=== PATIENT | female | born 1980 | race Caucasian/White ===

== ENCOUNTER → 2019-04-15 | Outpatient (CLI) | payer MEDICAID ==
[~2019-04-15] MED LIST: HOLD METFORMIN - RECEIVED CONTRAST 20 ML VIAL IV SCH; IOHEXOL 350 MG/ML 100 ML (OMNIPAQUE 350) VIAL IV ONE; NS 100 ML (IVPB) BAG IV ONE
--- NOTE | 2019-04-15 16:44 | Diagnostic Imaging Report ---
PROCEDURE: CT abdomen and pelvis with and without contrast. TECHNIQUE: Precontrast acquisitions were acquired through the abdomen and pelvis. Multiple contiguous axial images were obtained through the abdomen and pelvis after the administration of intravenous contrast. Auto Exposure Controls were utilized during the CT exam to meet ALARA standards for radiation dose reduction. DATE: April 15, 2019. COMPARISON: None. INDICATION: 39-year-old female, chronic pelvic pain. Vomiting and nausea. FINDINGS: There is mosaic lung attenuation which could relate to chronic small airways disease and air trapping. Chronic vascular etiology is also considered. The heart is not enlarged. There is no pericardial effusion. The liver is normal in size and contour. There is no identified liver lesion. The main, right, and left portal veins are patent. The gallbladder is unremarkable. There is no biliary ductal dilation. The main pancreatic duct is not abnormally dilated. Unremarkable appearance of the pancreatic parenchyma. The spleen is not enlarged. There is a right adrenal nodule on axial image 26 which measures 1.4 cm in size. Internal attenuation on precontrast portion of the study measures -1 Hounsfield unit. This is consistent with an adrenal adenoma. Unremarkable appearance of the renal parenchyma. The urinary collecting systems are not distended. There is no identified renal or ureteral stone. The urinary bladder is underdistended and without identified abnormality. There is an exophytic uterine lesion most likely reflecting uterine leiomyoma statistically on axial image 81 measuring 3.1 x 2.5 cm in axial dimension. There is a low-attenuation right adnexal mass on axial image 76 measuring 3.4 x 3.0 cm in size on axial image 76. The intestinal tract is not distended. The appendix is unremarkable. There is no free intraperitoneal air. There is no drainable fluid collection. There is no free pelvic fluid. There is no identified abnormally enlarged lymph node in the abdomen or pelvis which specifically meet CT size criteria for adenopathy. There are mild atherosclerotic calcifications noted. There are degenerative changes of the lumbar spine. IMPRESSION: CT ABDOMEN AND PELVIS. 1. Exophytic uterine lesion measuring 3.1 x 2.5 cm in size which is nonspecific based on imaging evaluation although statistically most likely an exophytic uterine leiomyoma. 2. Cystic-appearing right adnexal mass measuring 3.1 x 2.5 cm in size which may relate to an ovarian cyst although is not definitively diagnosed on CT. 3. No free pelvic fluid. 4. No identified acute abnormality in the abdomen or pelvis. Dictated by: Dictated on workstation # [id number]
== END ==
LOC: RAD 13:54
PROVIDERS: ATTEND Obstetrics & Gynecology
DX: N80.3 Endometriosis of pelvic peritoneum (principal); D25.1 Intramural leiomyoma of uterus; R11.10 Vomiting, unspecified
CPT/HCPCS: 74178

== ENCOUNTER 2019-06-02 11:39 | Outpatient (CLI) | payer MEDICAID ==
[~2019-06-02] VITALS: Ht 170 cm; Wt 106.3 kg
[2019-06-02] MEDS ORDERED: IBUP-2473 PO (11:49)
[2019-06-02] MEDS ORDERED: ACET325C7 PO (11:49)
[2019-06-02] MEDS ORDERED: ONDN4T PO (11:49)
[2019-06-02 11:52] VITALS: BP 131/84
[2019-06-02 12:56] LABS: BASOPHILS % (AUTO) 0 % (0-10); EOSINOPHILS # (AUTO) 0.3 10^3/uL (0.0-0.3); EOSINOPHILS % (AUTO) 4 % (0-10); HEMATOCRIT 42 % (35-52); LYMPHOCYTES # (AUTO) 1.9 X 10^3 (1.0-4.0); LYMPHOCYTES % (AUTO) 31 % (12-44); MEAN CORPUSCULAR HEMOGLOBIN 31 PG (25-34); MEAN CORPUSCULAR HGB CONC 34 G/DL (32-36); MEAN CORPUSCULAR VOLUME 91 FL (80-99); MEAN PLATELET VOLUME 9.5 FL (7.4-10.4); MONOCYTES # (AUTO) 0.3 X 10^3 (0.0-1.0); MONOCYTES % (AUTO) 5 % (0-12); NEUTROPHILS # (AUTO) 3.6 X 10^3 (1.8-7.8); NEUTROPHILS % (AUTO) 59 % (42-75); PLATELET COUNT 287 10^3/uL (130-400); RED CELL DISTRIBUTION WIDTH 13.3 % (10.0-14.5); WHITE BLOOD COUNT 6.1 10^3/uL (4.3-11.0)
== END 2019-06-02 15:19 | disposition home or self-care (01) ==
LOC: PREOP 11:39
PROVIDERS: ATTEND Obstetrics & Gynecology
DX: Z01.812 Encounter for preprocedural laboratory examination (principal); N92.0 Excessive and frequent menstruation with regular cycle; R10.2 Pelvic and perineal pain; D64.9 Anemia, unspecified
CPT/HCPCS: 36415; 85025; 86850; 86900; 86901; 87081

== ENCOUNTER → 2019-08-03 | Outpatient (CLI) | payer MEDICAID ==
[~2019-08-03] VITALS: Ht 170 cm; Wt 102.0 kg
[~2019-08-03] MED LIST changes: +ACET325C7 PO; +ACHYD1T PO; +AMOXICILLIN; +DOCU-143 PO; +ESTR1TAB24 PO; -HOLD METFORMIN - RECEIVED CONTRAST 20 ML VIAL IV SCH; +IBUP-1780 PO; +IBUP-2473 PO; -IOHEXOL 350 MG/ML 100 ML (OMNIPAQUE 350) VIAL IV ONE; -NS 100 ML (IVPB) BAG IV ONE; +ONDN4T PO; +PANT40TA3 PO; +SUCR1TAB36 PO
== END ==
LOC: PREOP 08-02 07:54
PROVIDERS: ATTEND Surgery
DX: Z01.818 Encounter for other preprocedural examination (principal)

== ENCOUNTER 2019-09-26 05:41 | Outpatient (RCR) | payer MEDICAID ==
[~2019-09-26] VITALS: Ht 172.7 cm; Wt 102.0 kg
== END 2019-09-26 12:00 | disposition home or self-care (01) ==
LOC: PREOP 05:41
PROVIDERS: ATTEND Surgery
DX: Z01.818 Encounter for other preprocedural examination (principal)

== ENCOUNTER 2019-09-28 09:27 | Day surgery (SDC) | payer MEDICAID ==
[~2019-09-28] VITALS: Ht 172.2 cm; Wt 102.0 kg
[2019-09-28] VITALS (11 sets, daily range): BP systolic 96–148; BP diastolic 54–79
[2019-09-28] MEDS ORDERED: LIDOCAINE JELLY 2% 6 ML SYRINGE MM PRN (09:30)
[2019-09-28] MEDS ORDERED: fentaNYL INJECTION 100 MCG/2 ML AMP IVP ONE (09:30)
[2019-09-28] MEDS ORDERED: NS IV 500 ML 500 ML IV PRN (09:30)
[2019-09-28] MEDS ORDERED: HURRICAINE EXT TUBE (BENZOCAINE) XX PRN (09:30)
[2019-09-28] MEDS ORDERED: NS IV 500 ML 500 ML ONE (09:32)
--- NOTE | 2019-09-28 10:11 | Conscious Sedation/ASA ---
Conscious Sedation Pre-Proced Time 10:00 ASA Score 2 For ASA 3 and 4: Consider anesthesia and medical clearance. Also, for patients with a history of failed moderate sedation consider anesthesia. Airway Lungs Heart ASA score ASA 1: a normal healthy patient ASA 2: a patient with a mild systemic disease (mid diabetes, controlled hypertension, obesity ASA 3: a patient with a severe systemic disease that limits activity (angina, COPD, prior Myocardial infarction) ASA 4: a patient with an incapacitating disease that is a constant threat to life (CHF, renal failure) ASA 5: a moribund patient not expected to survive 24 hrs. (ruptured aneurysm) ASA 6: a declared brain- patient whose organs are being harvested. For emergent operations, add the letter E after the classification Mallampati Classification Grade 3 Sedation Plan Analgesia, Amnesia, Plan communicated to team members, Discussed options with patient/fam, Discussed risks with patient/fam The patient is an appropriate candidate to undergo the planned procedure, sedation, and anesthesia. The patient immediately re-assessed prior to indication. HERO SMILEY MD Sep 28, 2019 10:10
--- NOTE | 2019-09-28 10:11 | Progress Note-Pre Operative ---
Pre-Operative Progress Note H&P Reviewed The H&P was reviewed, patient examined and no changes noted. Date Seen by Provider: Sep 28, 2019 Time Seen by Provider: 10:00 Date H&P Reviewed: Sep 28, 2019 Time H&P Reviewed: 10:00 Pre-Operative Diagnosis: GERD, dysphagia HERO SMILEY MD Sep 28, 2019 10:11
[2019-09-28] MEDS ORDERED: PANT40TA2 PO (10:12)
--- NOTE | 2019-09-28 10:12 | Discharge Inst-Surgical ---
D/C Lap Instructions-SHERICE New, Converted, or Re-Newed RX: RX on Chart Follow Up Activity as tolerated High Fiber Diet 25g or more per day Avoid Alcohol, Caffeine, Spicy Marble and Acid foods. Drink 64 fluid oz or more of fluids per day. Symptoms to Report: Fever over 101 degree F, Nausea/Vomiting If any problems/questions: Contact your physician or go to Emergency Room HERO SMILEY MD Sep 28, 2019 10:12
[2019-09-28] MEDS ORDERED: morphine INJ 10 MG/ML 1ML (SYR OR VIAL) IVP PRN ×2 (10:15)
[2019-09-28] MEDS ORDERED: ONDANSETRON 4 MG/2 ML (SDV) Z0FRAN IVP PRN (10:15)
[2019-09-28] MEDS ORDERED: ACETAMINOPHEN 325 MG TABLET PO PRN (10:15)
[2019-09-28] MEDS ORDERED: HYDROcodone/APAP 5 MG/325 MG (LORTAB) TAB PO PRN (10:15)
[2019-09-28] MEDS ORDERED: MIDAZOLAM 5 MG/5 ML (VERSED) VIAL ONE ×2 (10:37)
[2019-09-28] MEDS ORDERED: fentaNYL INJECTION 100 MCG/2 ML AMP ONE (10:37)
[2019-09-28] MEDS ORDERED: LIDOCAINE JELLY 2% 6 ML SYRINGE ONE (10:37)
[2019-09-28] MEDS: MIDAZOLAM 5 MG/5 ML (VERSED) VIAL IV PRN ×3 (10:46→10:55)
--- OUTSIDE RECORDS SUMMARY | 2019-09-28 11:18 | XMS REPORT | Continuity of Care Document ---
Demographics Preferred Language Unknown Marital Status Unknown Christian Affiliation Unknown Race Unknown Ethnic Group Unknown Author Organization Unknown Address Unknown Phone Unavailable Allergies Active Description Code Type Severity Reaction Onset Reported/Identified Relationship to Patient Clinical Status Yes CODEINE [id number] DRUG N/A N/A Yes No Allergy Information Available [id number] Drug Allergy Unknown N/A 019 Yes codeine [id number] Drug Allergy Moderate CHILLS/SHAKES 06/02/2019 Yes oxycodone [id number] Drug Allergy Severe ANAPHYLAXIS 08/03/2019 Yes codeine [id number] Drug Allergy Moderate CHILLS/SHAKES, 08/03/2019 Medications There is no data. Problems Date Dx Coded Attending Type Code Diagnosis Diagnosed By 03/19/1199 SHERICE DOLAN, HERO Lord Z01.81 8 ENCOUNTER FOR OTHER PREPROCEDURAL EXAMIN 04/18/2019 TARAS GARCIA DO Ot D25.1 INTRAMURAL LEIOMYOMA OF UTERUS 04/18/2019 TARAS GARCIA DO Ot N80.3 ENDOMETRIOSIS OF PELVIC PERITONEUM 04/18/2019 TARAS GARCIA DO Ot R11.10 VOMITING, UNSPECIFIED 05/31/2019 TARAS GARCIA DO Ot D25.1 INTRAMURAL LEIOMYOMA OF UTERUS 05/31/2019 TARAS GARICA DO Ot N80.3 ENDOMETRIOSIS OF PELVIC PERITONEUM 05/31/2019 TARAS GARCIA DO Ot R11.10 VOMITING, UNSPECIFIED 06/02/2019 BERENICE BECKWITH MD, Ot D64.9 ANEMIA, UNSPECIFIED 06/02/2019 BERENICE BECKWITH MD, Ot N92.0 EXCESSIVE AND FREQUENT MENSTRUATION WITH 06/02/2019 BERENICE BECKWITH MD Ot R10.2 PELVIC AND PERINEAL PAIN 06/02/2019 BERENICE BECKWITH MD, Ot Z01.812 ENCOUNTER FOR PREPROCEDURAL LABORATORY E 06/03/2019 BERENICE BECKWITH MD, Ot D64.9 ANEMIA, UNSPECIFIED 06/03/2019 BERENICE BECKWITH MD, Ot N92.0 EXCESSIVE AND FREQUENT MENSTRUATION WITH 06/03/2019 BERENICE BECKWITH MD, Ot R10.2 PELVIC AND PERINEAL PAIN 06/03/2019 BERENICE BECKWITH MD, Ot Z01.812 ENCOUNTER FOR PREPROCEDURAL LABORATORY E 06/08/2019 BERENICE BECKWITH MD, Ot D64.9 ANEMIA, UNSPECIFIED 06/08/2019 BERENICE BECKWITH MD, Ot N92.0 EXCESSIVE AND FREQUENT MENSTRUATION WITH 06/08/2019 BERENICE BECKWITH MD, Ot R10.2 PELVIC AND PERINEAL PAIN 06/08/2019 BERENICE BECKWITH MD, Ot Z01.812 ENCOUNTER FOR PREPROCEDURAL LABORATORY E 06/20/2019 BERENICE BECKWITH MD, Ot D25.0 SUBMUCOUS LEIOMYOMA OF UTERUS 06/20/2019 BERENICE BECKWITH MD, Ot D25.1 INTRAMURAL LEIOMYOMA OF UTERUS 06/20/2019 BERENICE BECKWITH MD, Ot D25.2 SUBSEROSAL LEIOMYOMA OF UTERUS 06/20/2019 BERENICE BECKWITH MD, Ot F17.210 NICOTINE DEPENDENCE, CIGARETTES, UNCOMPL 06/20/2019 BERENICE BECKWITH MD, Ot G43.909 MIGRAINE, UNSP, NOT INTRACTABLE, WITHOUT 06/20/2019 BERENICE BECKWITH MD, Ot G89.29 OTHER CHRONIC PAIN 06/20/2019 BERENICE BECKWITH MD, Ot K21.9 GASTRO-ESOPHAGEAL REFLUX DISEASE WITHOUT 06/20/2019 BERENICE BECKWITH MD, Ot M54.9 DORSALGIA, UNSPECIFIED 06/20/2019 BERENICE BECKWITH MD, Ot N80.0 ENDOMETRIOSIS OF UTERUS 06/20/2019 BERENICE BECKWITH MD, Ot N83.291 OTHER OVARIAN CYST, RIGHT SIDE 06/20/2019 BERENICE BECKWITH MD, Ot N83.292 OTHER OVARIAN CYST, LEFT SIDE 06/20/2019 BERENICE BECKWITH MD, Ot N93.8 OTHER SPECIFIED ABNORMAL UTERINE AND VAG 06/20/2019 BERENICE BECKWITH MD, Ot Z68.37 BODY MASS INDEX (BMI) 37.0-37.9, ADULT 06/20/2019 BERENICE BECKWITH MD, Ot Z79.899 OTHER [facility] (CURRENT) DRUG THERAPY 06/20/2019 BERENICE BECKWITH MD, Ot Z80.3 FAMILY HISTORY OF MALIGNANT NEOPLASM OF 06/20/2019 BERENICE BECKWITH MD, Ot Z80.41 FAMILY HISTORY OF MALIGNANT NEOPLASM OF 06/20/2019 BERENICE BECKWITH MD, Ot Z80.49 FAMILY HISTORY OF MALIGNANT NEOPLASM OF 06/20/2019 BERENICE BECKWITH MD, Ot Z83.3 FAMILY HISTORY OF DIABETES MELLITUS 06/20/2019 BERENICE BECKWITH MD, Ot Z88.5 ALLERGY STATUS TO NARCOTIC AGENT STATUS 07/01/2019 BERENICE BECKWITH MD, Ot D25.0 SUBMUCOUS LEIOMYOMA OF UTERUS 07/01/2019 EBRENICE BECKWITH MD, Ot D25.1 INTRAMURAL LEIOMYOMA OF UTERUS 07/01/2019 BERENICE BECKWITH MD, Ot D25.2 SUBSEROSAL LEIOMYOMA OF UTERUS 07/01/2019 BERENICE BECKWITH MD, Ot F17.210 NICOTINE DEPENDENCE, CIGARETTES, UNCOMPL 07/01/2019 BERENICE BECKWITH MD, Ot G43.909 MIGRAINE, UNSP, NOT INTRACTABLE, WITHOUT 07/01/2019 BERENICE BECKWITH MD, Ot G89.29 OTHER CHRONIC PAIN 07/01/2019 BERENICE BECKWITH MD, Ot K21.9 GASTRO-ESOPHAGEAL REFLUX DISEASE WITHOUT 07/01/2019 BERENICE BECKWITH MD, Ot M54.9 DORSALGIA, UNSPECIFIED 07/01/2019 BERENICE BECKWITH MD, Ot N80.0 ENDOMETRIOSIS OF UTERUS 07/01/2019 BERENICE BECKWITH MD, Ot N83.291 OTHER OVARIAN CYST, RIGHT SIDE 07/01/2019 BERENICE BECKWITH MD, Ot N83.292 OTHER OVARIAN CYST, LEFT SIDE 07/01/2019 BERENICE BECKWITH MD, Ot N93.8 OTHER SPECIFIED ABNORMAL UTERINE AND VAG 07/01/2019 BERENICE BECKWITH MD, Ot Z68.37 BODY MASS INDEX (BMI) 37.0-37.9, ADULT 07/01/2019 BERENICE BECKWITH MD, Ot Z79.899 OTHER FLAGGER (CURRENT) DRUG THERAPY 07/01/2019 BERENICE BECKWITH MD, Ot Z80.3 FAMILY HISTORY OF MALIGNANT NEOPLASM OF 07/01/2019 BERENICE BECKWITH MD, Ot Z80.41 FAMILY HISTORY OF MALIGNANT NEOPLASM OF 07/01/2019 BERENICE BECKWITH MD, Ot Z80.49 FAMILY HISTORY OF MALIGNANT NEOPLASM OF 07/01/2019 BERENICE BECKWITH MD, Ot Z83.3 FAMILY HISTORY OF DIABETES MELLITUS 07/01/2019 BERENICE BECKWITH MD, Ot Z88.5 ALLERGY STATUS TO NARCOTIC AGENT STATUS 08/03/2019 HERO SMILEY MD, Ot Z01.81 8 ENCOUNTER FOR OTHER PREPROCEDURAL EXAMIN 08/04/2019 HERO SMILEY MD, Ot Z01.81 8 ENCOUNTER FOR OTHER PREPROCEDURAL EXAMIN 08/26/2019 TARAS GARCIA DO Ot D25.1 INTRAMURAL LEIOMYOMA OF UTERUS 08/26/2019 TARAS GARCIA DO Ot N80.3 ENDOMETRIOSIS OF PELVIC PERITONEUM 08/26/2019 TARAS GARCIA DO, Ot R11.10 VOMITING, UNSPECIFIED Procedures There is no data. Results Test Result Range SUREPATH PAP AND HPV mRNA E6/E7 - 08:30 CLINICAL INFORMATION: NRG LMP: 12/10/17 NRG PREV. PAP: 2014 NRG PREV. BX: NONE NRG SOURCE: Cervix NRG STATEMENT OF ADEQUACY: NRG INTERPRETATION/RESULT: NRG CROSS ROLLER: NRG HPV mRNA E6/E7, SUREPATH VIAL Not Detected NOT DETECTED COMMENT NRG CULTURE, URINE - 12/16/17 08:30 CULTURE, URINE, ROUTINE SEE NOTE NRG CULTURE, GENITAL - 12/16/17 08:30 CULTURE, GENITAL SEE NOTE NRG TSH - 02/11/19 09:04 TSH 2.85 mIU/L NRG Complete blood count (CBC) with automate d white blood cell (WBC) differential - 06/02/19 12:10 Blood leukocytes automated count (number/volume) 6.1 10*3/uL 4.3-11.0 Blood erythrocytes automated count (number/volume) 4.58 10*6/uL 4.35-5.85 Venous blood hemoglobin measurement (mass/volume) 14.0 g/dL 11.5-16.0 Blood hematocrit (volume fraction) 42 % 35-52 Automated erythrocyte mean corpuscular volume 91 [ foz_us] 80-99 Automated erythrocyte mean corpuscular h emoglobin (mass per erythrocyte) 31 pg 25-34 Automated erythrocyte mean corpuscular h emoglobin concentration measurement (mass/volume) 34 g/dL 32-36 Automated erythrocyte distribution width ratio 13. 3 % 10.0- 14.5 Automated blood platelet count (count/volume) 287 10*3/uL 130-400 Automated blood platelet mean volume measurement 9.5 [foz_us] 7.4-10.4 Automated blood neutrophils/100 leukocytes 59 % 42-75 Automated blood lymphocytes/100 leukocytes 31 % 12-44 Blood monocytes/100 leukocytes 5 % 0-12 Automated blood eosinophils/100 leukocytes 4 % 0-10 Automated blood basophils/100 leukocytes 0 % 0-10 Blood neutrophils automated count (number/volume) 3.6 10*3 1.8-7.8 Blood lymphocytes automated count (number/volume) 1.9 10*3 1.0-4.0 Blood monocytes automated count (number/volume) 0. 3 10*3 0.0-1.0 Automated eosinophil count 0.3 10*3/uL 0 .0-0.3 Automated blood basophil count (count/volume) 0.0 10*3/uL 0.0-0.1 Blood type T Indirect antibody screen pa dewayne - 06/02/19 12:10 ABO+Rh group OP NRG Blood group antibody screen NEGATIVE NR G Methicillin resistant Staphylococcus aur eus (MRSA) screening culture - 06/02/19 12:15 Methicillin resistant Staphylococcus aureus (MRSA) scr eening culture NEG NRG Urine drug screening test - 06/15/19 10: 10 Urine phencyclidine detection by screening method NEGATIVE NEGATIVE Urine benzodiazepines detection by screening method NEGATIVE NEGATIVE Urine cocaine detection NEGATIVE NEGATI VE Urine amphetamines detection by screening method N EGATIVE NEGATIVE Urine methamphetamine detection by screening method NEGATIVE NEGATIVE Urine cannabinoids detection by screening method N EGATIVE NEGATIVE Urine opiates detection by screening method NEGATI VE NEGATIVE Urine barbiturates detection NEGATIVE N EGATIVE Screening urine tricyclic antidepressants detection NEGATIVE NEGATIVE Urine methadone detection by screening method NEGA TIVE NEGATIVE Urine oxycodone detection NEGATIVE NEGA TIVE Urine propoxyphene detection NEGATIVE N EGATIVE Blood type T Indirect antibody screen pa dewayne - 06/15/19 10:15 WRISTBAND NUMBER [id number] NRG ABO+Rh group OP NRG Blood group antibody screen NEGATIVE NR G Encounters ACCT No. Visit Date/Time Discharge Status Pt. Type Provider Facility Loc./Unit Complaint [id number] 06/10/2018 18:24:55 Document Registration [id number] 06/10/2018 18:12:01 Document Registration [id number] 01/08/2018 14:23:02 Document Registration [id number] 12/17/2017 15:15:01 Document Registration [id number] 09/29/2017 23:05:32 Document Registration [id number] 09/29/2017 21:07:50 Document Registration [id number] 06/08/2019 16:20:00 06/08/2019 23:59:[address] [facility] Outpatient THERESA ADAME MARTIN [id number] 02/11/2019 08:00:00 Document Registration [id number] 12/16/2017 08:00:00 Document Registration [id number] 09/26/2019 05:41:00 12:00:00 DIS Outpatient HERO SMILEY MD Via [facility] PREOP EGD [id number] 08/03/2019 11:09:00 23:59:59 CLS Outpatient HERO SMILEY MD [facility] PREOP EGD [id number] 06/15/2019 09:42:00 14:10:00 DIS Outpatient BERENICE BECKWITH MD Via [facility] CHRONIC PELVIC PAIN,HISTORY OF ENDOMETRIOSIS [id number] 06/02/2019 11:39:00 15:19:00 DIS Outpatient BERENICE BECKWITH MD [facility] PREOP CHRONIC PELVIC PAIN [id number] 05/23/2019 09:15:00 23:59:59 CLS Preadmit TARAS GARCIA DO Via [facility] CHRONIC PELVIC PAIN [id number] 04/15/2019 13:54:00 12/27/2 019 23:59:59 CLS Outpatient TARAS GARCIA DO Via [facility] RAD CHRONIC FEMALE PELVIC PAIN [id number] 09/28/2019 09:27:[address] Outpatient HERO SMILEY MD Via [facility] [place] ENDO REFLUX, DYSPHAGIA [id number] 05/18/2019 19:02:56 05/18/2019 23:59: 59 CLS Outpatient Yuli Lynn [id number] 09/02/2018 17:08:55 09/02/2018 23:59: 59 CLS Outpatient Naima Vila Tahir [id number] 03/16/2018 19:26:42 03/16/2018 23:59: 59 CLS Outpatient Kathleen Reeves [id number] 12/15/2017 18:52:59 12/15/2017 23:59: 59 CLS Outpatient Theresa Adame [id number] 11/30/2014 16:09:50 11/30/2014 23:59: 59 CLS Outpatient Percy Mckeon [id number] 04/27/2014 16:17:02 04/27/2014 23:59: 59 CLS Outpatient Percy Mckeon [id number] 03/30/2014 15:47:09 03/30/2014 23:59: 59 CLS Outpatient Percy Mckeon [id number] 03/09/2014 14:32:37 03/09/2014 23:59: 59 CLS Outpatient Percy Mckeon [id number] 02/02/2014 15:26:20 02/02/2014 23:59: 59 CLS Outpatient Percy Mckeon [id number] 01/05/2014 16:04:06 01/05/2014 23:59: 59 CLS Outpatient Percy Mckeon [id number] 11/10/2013 15:58:29 11/10/2013 23:59: 59 CLS Outpatient Percy Mckeon [id number] 08/29/2013 16:36:08 08/29/2013 23:59: 59 CLS Outpatient Brigitte Burch [id number] 08/18/2013 14:40:16 08/18/2013 23:59: 59 CLS Outpatient Percy Mckeon [id number] 07/28/2013 14:33:46 07/28/2013 23:59: 59 CLS Outpatient Percy Mckeon [id number] 07/28/2013 11:12:25 07/28/2013 23:59: 59 CLS Outpatient BurchBrigitte [id number] 07/21/2013 14:38:53 07/21/2013 23:59: 59 CLS Outpatient Percy Mckeon [id number] 06/28/2013 14:42:45 06/28/2013 23:59: 59 CLS Outpatient Sera Coleman [id number] 06/03/2013 11:24:06 06/03/2013 23:59: 59 CLS Outpatient Sera Coleman [id number] 06/02/2013 14:50:58 06/02/2013 23:59: 59 CLS Outpatient Percy Mckeon
--- NOTE | 2019-09-28 11:19 | Progress Note-Post Operative ---
Post-Operative Progess Note Surgeon (s)/Production Administrator (s) Surgeon HERO SMILEY MD Production Administrator: none Pre-Operative Diagnosis GERD, dysphagia Post-Operative Diagnosis reflux esophagitis(stage 2), small HH(1.5-2cm), moderate gastritis. Procedure & Operative Findings Date of Procedure 09/28/19 Procedure Performed/Findings EGD with bx. Anesthesia Type cs Estimated Blood Loss Estimated blood loss (mL): minimal Specimens/Packing Specimens Removed ge jxn, antrum HERO SMILEY MD Sep 28, 2019 11:19
--- NOTE | 2019-09-28 19:30 | OPERATIVE REPORT ---
DATE OF SERVICE: 09/28/2019 PREOPERATIVE DIAGNOSES: Gastroesophageal reflux disease, mild dysphagia. POSTOPERATIVE DIAGNOSES: Reflux esophagitis stage II, small hiatal hernia 1.5 to 2 cm in size, moderate gastritis. No distal obstructions. PROCEDURE: EGD with biopsy. SURGEON: Hero Smiley MD. ANESTHESIA: Conscious sedation. ESTIMATED BLOOD LOSS: Minimal. FINDINGS: Reflux esophagitis stage II, small hiatal hernia 1.5 to 2 cm in size, moderate gastritis. No distal obstructions. DISPOSITION: The patient tolerated the procedure well. INDICATIONS: The patient is a 39-year-old female referred over to us for abdominal bloating as well as increased belching. She states that the feeling of satiety with little amounts of food and, also does have some epigastric crampy pain after eating meals. She does not report any luis episodes of nausea or vomiting; however, does have issues with heartburn. She does not report any hematemesis, no coffee ground emesis. She does have risk factors including smoking 2 packs daily for the past 7 years. She also reports mild episodes of dysphagia with some types of foods with substernal pressure sensation after the food bolus. DESCRIPTION OF PROCEDURE: The patient was brought to the endoscopy suite, laid in the left lateral decubitus position. After adequate IV pain and sedative medications and conscious sedation anesthesia, the mouthpiece was applied. The endoscope was placed in the mouth, visualizing the pharynx and hypopharyngeal region. Vocal cords, epiglottis and vallecula identified and appeared to be normal. The endoscope was then gently intubated. Esophageal opening and esophagus insufflated. The endoscope was then advanced to the first, second and third portion of the esophagus at the level of GE junction, a reflux esophagitis stage II identified. There were no ulcers or strictures identified in this region and a biopsy was taken with forceps with visualization of good hemostasis. The endoscope was then advanced into the stomach and endoscope retroflexed, visualizing a small hiatal hernia 1.5 to 2 cm in size. There was a moderate severity gastritis. No formal ulcerations, polyps, nor any neoplasms. A biopsy was taken of the stomach antrum to rule out H. pylori. Endoscope was then advanced to the pylorus and the first and second portion of the duodenum, which appeared normal with no distal obstructions. The endoscope was then slowly withdrawn while taking a second look and suctioning of residual air with no additional findings. The patient tolerated the procedure well. We will recommend the necessary lifestyle and diet accommodation including smoking cessation as well as avoidance of caffeinated beverages, spicy, greasy and acidic foods. She also needs to take in small and more frequent meals and avoid eating at night. We will also start her on Protonix 40 mg daily. We will also await the biopsy results to rule out H. pylori. If she continues to have issues with early satiety after meals as well as nausea after eating meals, this may be a gallbladder etiology and we will proceed with ultrasound as well as a possible HIDA scan. Job ID: [id number] DocumentID: [id number] Dictated Date: 09/28/2019 11:14:56 Layout Worker Date: 09/28/2019 19:29:18 Dictated By: HERO SMILEY MD
== END 2019-09-28 11:55 | disposition home or self-care (01) ==
LOC: ENDO 09:27
PROVIDERS: ATTEND Surgery
DX: K21.0 Gastro-esophageal reflux disease with esophagitis (principal); K44.9 Diaphragmatic hernia without obstruction or gangrene; K29.70 Gastritis, unspecified, without bleeding; F17.210 Nicotine dependence, cigarettes, uncomplicated; Z79.890 Hormone replacement therapy

== ENCOUNTER → 2019-10-13 | Outpatient (CLI) | payer MEDICAID ==
[~2019-10-13] MED LIST changes: +PANT40TA2 PO
--- NOTE | 2019-10-13 09:18 | Diagnostic Imaging Report ---
PROCEDURE: US Gallbladder. TECHNIQUE: Multiple real-time grayscale images were obtained over the right upper quadrant in various projections. INDICATION: Right upper quadrant abdominal pain. FINDINGS: There is hepatomegaly with liver measuring at least 20 cm in length. No focal hepatic abnormality is identified. Multiple echogenic foci are present within the lumen of gallbladder without evidence of gallbladder wall thickening or pericholecystic fluid. No biliary ductal dilatation is identified. Visualized portions of pancreas, abdominal aorta and inferior vena cava are unremarkable. No right renal abnormality or abdominal free fluid is seen. IMPRESSION: Cholecystolithiasis without additional sign of acute cholecystitis or biliary obstruction. Dictated by: Dictated on workstation # [id number]
--- NOTE | 2019-10-13 09:23 | Diagnostic Imaging Report ---
PROCEDURE: CT abdomen and pelvis with and without contrast. TECHNIQUE: Precontrast acquisitions were acquired through the abdomen and pelvis. Multiple contiguous axial images were obtained through the abdomen and pelvis after the administration of intravenous contrast. Auto Exposure Controls were utilized during the CT exam to meet ALARA standards for radiation dose reduction. INDICATION: Abdominal pain for 2 months. FINDINGS: The previous CT abdomen/pelvis exam of 04/15/2019 noted an exophytic uterine lesion measuring 3.1 x 2.5 cm. There is also a cystic-appearing right adnexal mass measuring 3.1 x 2.5 cm. Reportedly interval since the prior exam, the patient has undergone a hysterectomy. I am not certain if the ovaries were also removed but the cystic mass in the right adnexa seen previously is no longer evident. Correlation with patient's surgical history would be recommended. The urinary bladder is not well-distended and consequently difficult to assess. There is no pelvic mass or free fluid collection noted. The appendix is not well-visualized and may also be surgically absent. In the interval since the prior exam, a small area of mixed density has developed within the gallbladder. I suspect that this is a gallstone. The gallbladder wall is not thickened and there is no pericholecystic fluid to suggest acute cholecystitis. Even so, ultrasound would be recommended for further study. The liver, spleen, pancreas, adrenals, kidneys, aorta and inferior vena cava show sign of an acute abnormality. The stomach is not well-distended and consequently difficult to assess. The lung bases are clear. The bone windows show no sign of a fracture or destructive lesion. IMPRESSION: 1. There are postoperative changes consistent with an interval hysterectomy. The ovaries and appendix may also be surgically absent. Correlation with patient's surgical history would be recommended. 2. In the interval since the prior exam, cholelithiasis has developed. While there is no evidence for acute cholecystitis, ultrasound would be recommended for further evaluation of the gallbladder. 3. There is no acute abnormality of the abdomen or pelvis noted otherwise. Dictated by: Dictated on workstation # [id number]
== END ==
LOC: RAD 07:22
PROVIDERS: ATTEND Surgery
DX: K80.20 Calculus of gallbladder without cholecystitis without obstruction (principal); Z98.890 Other specified postprocedural states; Z90.710 Acquired absence of both cervix and uterus
CPT/HCPCS: 74178; 76705

== ENCOUNTER 2019-10-24 05:47 | Outpatient (RCR) | payer MEDICAID ==
[~2019-10-24] VITALS: Ht 170 cm; Wt 111.0 kg
[~2019-10-24 05:47] MED LIST changes: +DOCU-238 PO; +HYDR-83 PO; +ONDA4TAB11 PO
== END 2019-10-24 11:07 | disposition home or self-care (01) ==
LOC: PREOP 05:47
PROVIDERS: ATTEND Surgery
DX: Z01.818 Encounter for other preprocedural examination (principal)

== ENCOUNTER 2019-11-03 09:36 | Day surgery (SDC) | payer MEDICAID ==
[2019-11-03] VITALS (11 sets, daily range): BP systolic 94–131; BP diastolic 60–80
[~2019-11-03] VITALS: Ht 170 cm; Wt 111.0 kg
--- OUTSIDE RECORDS SUMMARY | 2019-11-03 09:45 | XMS REPORT | Continuity of Care Document ---
Demographics Preferred Language Unknown Marital Status Unknown Restoration Affiliation Unknown Race Unknown Ethnic Group Unknown Author Organization Unknown Address Unknown Phone Unavailable Allergies Active Description Code Type Severity Reaction Onset Reported/Identified Relationship to Patient Clinical Status Yes CODEINE 67625009 DRUG N/A N/A Yes No Allergy Information Available [id number] Drug Allergy Unknown N/A 019 Yes codeine [id number] Drug Allergy Moderate CHILLS/SHAKES 06/02/2019 Yes oxycodone [id number] Drug Allergy Severe ANAPHYLAXIS 08/03/2019 Yes oxycodone [id number] Drug Allergy Severe ANAPHYLAXIS, pt 10/20/2019 Yes codeine [id number] Drug Allergy Moderate CHILLS/SHAKES, 10/20/2019 Medications There is no data. Problems Date Dx Coded Attending Type Code Diagnosis Diagnosed By 03/19/1106 HERO SMILEY MD Ot Z01.81 8 ENCOUNTER FOR OTHER PREPROCEDURAL EXAMIN 03/19/1199 HERO SMILEY MD, Ot Z01.81 8 ENCOUNTER FOR OTHER PREPROCEDURAL EXAMIN 04/18/2019 TARAS GARCIA DO Ot D25.1 INTRAMURAL LEIOMYOMA OF UTERUS 04/18/2019 TARAS GARCIA DO Ot N80.3 ENDOMETRIOSIS OF PELVIC PERITONEUM 04/18/2019 TARAS GARCIA DO Ot R11.10 VOMITING, UNSPECIFIED 05/31/2019 TARAS GARCIA DO Ot D25.1 INTRAMURAL LEIOMYOMA OF UTERUS 05/31/2019 TARAS GARCIA DO Ot N80.3 ENDOMETRIOSIS OF [...] 06/20/2019 BERENICE BECKWITH MD, Ot Z79.899 OTHER ASSISTED (CURRENT) DRUG THERAPY 06/20/2019 BERENICE BECKWITH MD, [...] Ot D25.0 SUBMUCOUS LEIOMYOMA OF UTERUS 07/01/2019 BERENICE BECKWITH MD, Ot D25.1 INTRAMURAL LEIOMYOMA [...] 07/01/2019 BERENICE BECKWITH MD, Ot Z79.899 OTHER ASSISTED (CURRENT) DRUG THERAPY 07/01/2019 BERENICE BECKWITH MD, [...] ENDOMETRIOSIS OF PELVIC PERITONEUM 08/26/2019 TARAS GARCIA DO Ot R11.10 VOMITING, UNSPECIFIED 09/28/2019 HERO SMILEY MD, Ot F17.21 0 NICOTINE DEPENDENCE, CIGARETTES, UNCOMPL 09/28/2019 HERO SMILEY MD Ot K21.0 GASTRO-ESOPHAGEAL REFLUX DISEASE WITH ES 09/28/2019 HERO SMILEY MD, Ot K29.70 GASTRITIS, UNSPECIFIED, WITHOUT BLEEDING 09/28/2019 HERO SMILEY MD, Ot K44.9 DIAPHRAGMATIC HERNIA WITHOUT OBSTRUCTION 09/28/2019 HERO SMILEY MD, Ot Z79.89 0 HORMONE REPLACEMENT THERAPY 09/30/2019 HERO SMILEY MD, Ot F17.21 0 NICOTINE DEPENDENCE, CIGARETTES, UNCOMPL 09/30/2019 HERO SMILEY MD, Ot K21.0 GASTRO-ESOPHAGEAL REFLUX DISEASE WITH ES 09/30/2019 HERO SMILEY MD, Ot K29.70 GASTRITIS, UNSPECIFIED, WITHOUT BLEEDING 09/30/2019 HERO SMILEY MD, Ot K44.9 DIAPHRAGMATIC HERNIA WITHOUT OBSTRUCTION 09/30/2019 HERO SMILEY MD, Ot Z79.89 0 HORMONE REPLACEMENT THERAPY 10/09/2019 HERO SMILEY MD, Ot F17.21 0 NICOTINE DEPENDENCE, CIGARETTES, UNCOMPL 10/09/2019 HERO SMILEY MD, Ot K21.0 GASTRO-ESOPHAGEAL REFLUX DISEASE WITH ES 10/09/2019 HERO SMILEY MD, Ot K29.50 UNSPECIFIED CHRONIC GASTRITIS WITHOUT BL 10/09/2019 HERO SMILEY MD, Ot K44.9 DIAPHRAGMATIC HERNIA WITHOUT OBSTRUCTION 10/09/2019 HERO SMILEY MD, Ot Z79.89 0 HORMONE REPLACEMENT THERAPY 10/09/2019 HERO SMILEY MD, Ot Z88.5 ALLERGY STATUS TO NARCOTIC AGENT STATUS 10/16/2019 HERO SMILEY MD, Ot K80.20 CALCULUS OF GALLBLADDER W/O CHOLECYSTITI 10/16/2019 HERO SMILEY MD, Ot Z90.71 0 ACQUIRED ABSENCE OF BOTH CERVIX AND UTER 10/16/2019 HERO SMILEY MD, Ot Z98.89 0 OTHER SPECIFIED POSTPROCEDURAL STATES Procedures There is no data. Results Test Result Range SUREPATH PAP AND HPV mRNA E6/E7 - 08:30 CLINICAL INFORMATION: NRG LMP: 12/10/17 NRG PREV. PAP: 2014 NRG PREV. BX: NONE NRG SOURCE: Cervix NRG STATEMENT OF ADEQUACY: NRG INTERPRETATION/RESULT: NRG AIR MARSHAL: NRG HPV mRNA E6/E7, SUREPATH VIAL Not [...] pa dewayne - 06/15/19 10:15 WRISTBAND NUMBER [id number] NRG ABO+Rh group OP NRG Blood group antibody screen NEGATIVE NR G Encounters ACCT No. Visit Date/Time Discharge Status Pt. Type Provider Facility Loc./Unit Complaint [id number] 06/10/2018 18:24:55 Document Registration [id number] 06/10/2018 18:12:01 Document Registration [id number] 01/08/2018 14:23:02 Document Registration [id number] 12/17/2017 15:15:01 Document Registration [id number] 09/29/2017 23:05:32 Document Registration [id number] 09/29/2017 21:07:50 Document Registration [id number] 06/08/2019 16:20:00 06/08/2019 23:59:5 9 CLS Outpatient THERESA ADAME MARTIN [id number] 02/11/2019 08:00:00 Document Registration [id number] 12/16/2017 08:00:00 Document Registration [id number] 10/27/2019 09:00:00 23:59:59 CLS Preadmit HERO SMILEY MD [facility] SDC GALLSTONES [id number] 10/24/2019 05:47:00 11:07:00 DIS Outpatient HERO SMILEY MD [facility] PREOP LAPAROSCOPIC CHOLECYSTE CTOMY [id number] 10/17/2019 10:00:00 23:59:59 CLS Preadmit HERO SMILEY MD [facility] CARD RUQ PAIN [id number] 10/13/2019 07:22:00 23:59:59 CLS Outpatient HERO SMILEY MD [facility] RAD RUQ PAIN [id number] 09/28/2019 09:27:00 11:55:00 DIS Outpatient HERO SMILEY MD [facility] ENDO REFLUX, DYSPHAGIA [id number] 09/26/2019 05:41:00 12:00:00 DIS Outpatient HERO SMILEY MD [facility] PREOP EGD [id number] 08/03/2019 11:09:00 23:59:59 CLS Outpatient HERO SMILEY MD [facility] PREOP EGD [id number] 06/15/2019 09:42:00 020 14:10:00 DIS Outpatient BERENICE BECKWITH MD [facility] CHRONIC PELVIC PAIN,HISTORY OF ENDOMETRIOSIS [id number] 06/02/2019 11:39:00 15:19:00 DIS Outpatient BERENICE BECKWITH MD [facility] PREOP CHRONIC PELVIC PAIN [id number] 05/23/2019 09:15:00 23:59:59 CLS Preadmit TARAS GARCIA DO [facility] CHRONIC PELVIC PAIN [id number] 04/15/2019 13:54:00 23:59:59 CLS Outpatient TARAS GARCIA DO [facility] RAD CHRONIC FEMALE PELVIC PAIN [id number] 11/03/2019 11:45:00 P EN Preadmit HERO SMILEY MD [facility] GALLSTONES [id number] 05/18/2019 19:02:56 05/18/2019 23:59: 59 CLS Outpatient Yuli Lynn [id number] 09/02/2018 17:08:55 09/02/2018 23:59: 59 CLS Outpatient Naima Vila [id number] 03/16/2018 19:26:42 03/16/2018 23:59: 59 CLS Outpatient Kathleen Reeves [id number] 12/15/2017 18:52:59 12/15/2017 23:59: 59 CLS Outpatient Theresa Adame [id number] 11/30/2014 16:09:50 11/30/2014 23:59: 59 CLS Outpatient Percy Mckeon [id number] 04/27/2014 16:17:02 04/27/2014 23:59: 59 CLS Outpatient Percy Mckeon [id number] 03/30/2014 15:47:09 03/30/2014 23:59: 59 CLS Outpatient Percy Mckeon [id number] 03/09/2014 14:32:37 03/09/2014 23:59: 59 CLS Outpatient Percy Mckeon [id number] 02/02/2014 15:26:20 02/02/2014 23:59: 59 CLS Outpatient Percy Mckeon [id number] 01/05/2014 16:04:06 01/05/2014 23:59: 59 CLS Outpatient Percy Mckeon [id number] 11/10/2013 15:58:29 11/10/2013 23:59: 59 CLS Outpatient Percy Mckeon [id number] 08/29/2013 16:36:08 08/29/2013 23:59: 59 CLS Outpatient Brigitte Burch [id number] 08/18/2013 14:40:16 08/18/2013 23:59: 59 CLS Outpatient Percy Mckeon [id number] 07/28/2013 14:33:46 07/28/2013 23:59: 59 CLS Outpatient Percy Mckeon [id number] 07/28/2013 11:12:25 07/28/2013 23:59: 59 CLS Outpatient Brigitte Burch [id number] 07/21/2013 14:38:53 07/21/2013 23:59: 59 CLS Outpatient Percy Mckeon [id number] 06/28/2013 14:42:45 06/28/2013 23:59: 59 CLS Outpatient Sera Coleman [id number] 06/03/2013 11:24:06 06/03/2013 23:59: 59 CLS Outpatient Sera Coleman [id number] 06/02/2013 14:50:58 06/02/2013 23:59: 59 CLS Outpatient Percy Mckeon [id number] 11/02/2019 19:13:09 ACT Outpatient Kathleen Reeves
--- NOTE | 2019-11-03 09:54 | Progress Note-Pre Operative ---
Pre-Operative Progress Note H&P Reviewed The H&P was reviewed, patient examined and no changes noted. Date Seen by Provider: Nov 03, 2019 Time Seen by Provider: 09:45 Date H&P Reviewed: Nov 03, 2019 Time H&P Reviewed: 09:40 Pre-Operative Diagnosis: Chronic calculous cholecystitis JEFF HEAD APRN Nov 03, 2019 09:53
[2019-11-03] MEDS ORDERED: HYDR-83 PO (09:56)
--- NOTE | 2019-11-03 09:56 | Discharge Inst-Surgical ---
D/C Lap Instructions-KIDO Reconcile Patient Problems Problems Reviewed?: Yes New, Converted, or Re-Newed RX: RX on Chart Follow Up Appt in 2 weeks Activity as tolerated No driving for 24 hours No driving while on pain medications Incentive Spirometry use every 2 hours while awake Regular Diet Symptoms to Report: Fever over 101 degree F, Nausea/Vomiting Infection Signs and Symptoms to report: Increased redness, Foul odor of wound, Increased drainage Bathing instructions: May shower Operative Area Clean/Dry; Keep incision clean/dry If any problems/questions: Contact your physician or go to Emergency Room JEFF HEAD APRN Nov 03, 2019 09:56
[2019-11-03] MEDS ORDERED: FAMOTIDINE 20MG/2ML IV (PEPCID) IV ONE (10:00)
[2019-11-03] MEDS ORDERED: ONDANSETRON 4 MG/2 ML (SDV) Z0FRAN IV ONE (10:00)
[2019-11-03] MEDS ORDERED: ONDANSETRON 4 MG/2 ML (SDV) Z0FRAN IVP PRN ×2 (10:00→15:30)
[2019-11-03] MEDS ORDERED: HYDROcodone/APAP 5 MG/325 MG (LORTAB) TAB PO ONE (10:00)
[2019-11-03] MEDS ORDERED: morphine INJ 10 MG/ML 1ML (SYR OR VIAL) IVP PRN (10:00)
[2019-11-03] MEDS ORDERED: ACETAMINOPHEN 325 MG TABLET PO PRN (10:00)
[2019-11-03] MEDS ORDERED: LACTATED RINGERS 1,000 ML IV PRN (10:32)
[2019-11-03] MEDS ORDERED: ceFAZolin 2 GM IV Premixed 50 ML IV ONE (10:45)
[2019-11-03 11:07] LABS: BASOPHILS % (AUTO) 0 % (0-10); EOSINOPHILS # (AUTO) 0.3 10^3/uL (0.0-0.3); EOSINOPHILS % (AUTO) 5 % (0-10); HEMATOCRIT 40 % (35-52); HEMOGLOBIN 13.4 G/DL (11.5-16.0); LYMPHOCYTES # (AUTO) 1.6 X 10^3 (1.0-4.0); LYMPHOCYTES % (AUTO) 24 % (12-44); MEAN CORPUSCULAR HEMOGLOBIN 30 PG (25-34); MEAN CORPUSCULAR HGB CONC 33 G/DL (32-36); MEAN CORPUSCULAR VOLUME 90 FL (80-99); MEAN PLATELET VOLUME 9.6 FL (7.4-10.4); MONOCYTES # (AUTO) 0.3 X 10^3 (0.0-1.0); MONOCYTES % (AUTO) 5 % (0-12); NEUTROPHILS # (AUTO) 4.2 X 10^3 (1.8-7.8); NEUTROPHILS % (AUTO) 65 % (42-75); PLATELET COUNT 271 10^3/uL (130-400); RED CELL DISTRIBUTION WIDTH 12.9 % (10.0-14.5); WHITE BLOOD COUNT 6.5 10^3/uL (4.3-11.0)
[2019-11-03] MEDS ORDERED: AMOX500C2 PO (11:41)
[2019-11-03] MEDS ORDERED: fentaNYL INJECTION 100 MCG/2 ML AMP ONE (11:46)
[2019-11-03] MEDS ORDERED: ROCURONIUM 10 MG/ML 5 ML SYRINGE IV ONE (11:47)
[2019-11-03] MEDS ORDERED: proPOfol 200 MG/20 ML (DIPRIVAN) VIAL IV ONE (11:47)
[2019-11-03] MEDS ORDERED: LIDOCAINE PF 2% 5 ML (XYLOCAINE) VIAL ONE (11:47)
[2019-11-03] MEDS ORDERED: MIDAZOLAM 2 MG/2 ML (VERSED) VIAL ONE (11:47)
[2019-11-03] MEDS ORDERED: SEVOFLURANE (ULTANE) 15 ML INHAL SOLN ONE ×3 (11:48→15:07)
[2019-11-03] MEDS ORDERED: ONDANSETRON 4 MG/2 ML (SDV) Z0FRAN ONE (11:48)
[2019-11-03] MEDS ORDERED: GLYCOPYRROLATE 0.2 MG/ML (ROBINUL) 2 ML VIAL ONE (11:48)
[2019-11-03] MEDS ORDERED: NEOSTIGMINE 3 MG/3 ML VIAL ONE (11:48)
[2019-11-03] MEDS ORDERED: DEXAMETHASONE 10 MG/ML (DECADRON) 1 ML VIAL ONE (11:48)
[2019-11-03] MEDS ORDERED: BUP/EPI 0.5% 1:200,000 (SENSORCAINE) 30 ML VIAL ONE (12:23)
--- NOTE | 2019-11-03 15:17 | Anesthesia-General Post-Op ---
General Patient Condition Mental Status/LOC: Same as Preop Cardiovascular: Satisfactory Nausea/Vomiting: Absent Respiratory: Satisfactory Pain: Controlled Complications: Absent Post Op Complications Complications None Follow Up Care/Instructions Patient Instructions None needed. Anesthesia/Patient Condition Patient Condition Patient is doing well, no complaints, stable vital signs, no apparent adverse anesthesia problems. No complications reported per nursing. TORI FLOWERS CRNA Nov 03, 2019 15:17
[2019-11-03] MEDS ORDERED: MEPERIDINE (DEMEROL) INJ 50 MG/ML IVP ONE (15:30)
[2019-11-03] MEDS ORDERED: morphine INJ 10 MG/ML 1ML (SYR OR VIAL) IVP ONE (15:30)
[2019-11-03] MEDS ORDERED: morphine INJ 10 MG/ML 1ML (SYR OR VIAL) ONE (15:42)
--- NOTE | 2019-11-03 15:49 | OPERATIVE REPORT ---
DATE OF SERVICE: 11/03/2019 ATTENDING PRIMARY REIMBURSEMENT REP: Renea Sams APRN. PREOPERATIVE DIAGNOSIS: Symptomatic chronic calculous cholecystitis. POSTOPERATIVE DIAGNOSIS: Symptomatic chronic calculous cholecystitis. PROCEDURE PERFORMED: Laparoscopic cholecystectomy. SURGEON: Hero Smiley MD. GAS METER READER: Fredrick Stark APRN. ANESTHESIA: General endotracheal. ESTIMATED BLOOD LOSS: Minimal. FINDINGS: Two large gallstones. DISPOSITION: The patient tolerated the procedure well. INDICATIONS FOR PROCEDURE: The patient is a 39-year-old female, who has had abdominal bloating, belching as well as epigastric and right upper abdominal quadrant discomfort after eating meals. She also does have issues with reflux and does have risk factors including smoking two packs daily for the past seven years. She underwent an EGD on 09/28/2019 and was found to have a small hiatal hernia as well as a moderate gastritis. An ultrasound was performed, which did show gallstones. DESCRIPTION OF PROCEDURE: The patient was brought to the operating room and laid supine on the table. After adequate IV pain and sedative medications and general endotracheal intubation, the abdomen was prepped and draped in a standard surgical fashion. A 0.5% Marcaine with epinephrine was then used to anesthetize the overlying skin in the left upper abdominal quadrant and a transverse skin incision made using a 15 blade. A 0 silk suture was applied to the medial aspect of the incision for retraction and a Veress needle inserted with a low opening pressure of 0 mmHg and the abdomen was then insufflated to 15 mmHg pressure. The Veress needle removed and a 5 mm XL trocar was placed followed by a 5 mm 45-degree angle laparoscope visualizing the peritoneal cavity. A four-quadrant abdominal exploration was performed. She was found to have liver steatosis. There were also significant omental adhesions towards the gallbladder, likely consistent with a chronic calculous cholecystitis. Under direct visualization, we then proceeded to place a supraumbilical 10 mm port after the skin and peritoneal lining were anesthetized using 0.5% Marcaine with epinephrine and a transverse skin incision was made using a 15 blade. In a similar manner, a right upper abdominal quadrant 5 mm port was placed. The patient was then placed in a reverse Trendelenburg position as well as plane right side up, left side down. The omental adhesions were then taken down using blunt dissection as well as electrocautery and the hook instrument. Once the gallbladder was visualized, the fundus was retracted anteriorly and superiorly. We then proceeded with systematic dissection of the omentum off of the liver as well as the gallbladder using blunt dissection as well as electrocautery on hook instrument. The hepatoduodenal ligament was then opened using a blunt dissection as well as electrocautery and the hook instrument. The entire critical view of safety was identified including the triangle of Calot as well as the cystic duct and artery as the only two structures going into the gallbladder as well as the cystic plate behind the proximal gallbladder. A timeout was then taken and the cystic duct and artery were then clipped proximally, distally and cut with EndoShears. The gallbladder was then dissected off the liver bed using electrocautery and hook instrument with visualization of good hemostasis as well as no leaking ducts of Luschka. The gallbladder was removed through the 10 mm port site using an EndoCatch bag. The 10 mm port site fascia and peritoneum were then closed under direct visualization using a Petar-Delmy device and 0 Vicryl suture. The abdomen was desufflated and remaining ports removed. All skin incisions were closed using 4-0 Monocryl running subcuticular sutures. Wounds were then cleaned and covered with Dermabond. The patient tolerated the procedure well. We will start IV normal pain medication as well as a clear liquid diet. When she is tolerating clears, has good pain control with oral pain medications and ambulating well, we will discharge her home. She will be instructed to do no heavy lifting or exertion for the next two weeks. Job ID: [id number] DocumentID: [id number] Dictated Date: 11/03/2019 15:01:44 Etcher Electrolytic Date: 11/03/2019 15:48:58 Dictated By: HERO SMILEY MD
[2019-11-03] MEDS ORDERED: HYDROcodone/APAP 5 MG/325 MG (LORTAB) TAB ONE (16:39)
== END 2019-11-03 17:55 | disposition home or self-care (01) ==
LOC: SDC 09:36
PROVIDERS: ATTEND Surgery
DX: K80.10 Calculus of gallbladder with chronic cholecystitis without obstruction (principal); K44.9 Diaphragmatic hernia without obstruction or gangrene; K29.70 Gastritis, unspecified, without bleeding; G89.29 Other chronic pain; G43.909 Migraine, unspecified, not intractable, without status migrainosus; K21.9 Gastro-esophageal reflux disease without esophagitis; K58.9 Irritable bowel syndrome, unspecified; E66.9 Obesity, unspecified; Z68.38 Body mass index [BMI] 38.0-38.9, adult; F17.210 Nicotine dependence, cigarettes, uncomplicated; Z79.899 Other long term (current) drug therapy; Z88.5 Allergy status to narcotic agent
CPT/HCPCS: 36415; 85025; 87081; 88304

== ENCOUNTER → 2019-12-16 | Outpatient (CLI) | payer MEDICAID ==
[~2019-12-16] MED LIST changes: +AMOX500C2 PO; +BARIUM for suspension 96% w/w (Vanilla Silq Medium Density) PO ONE; +BARIUM for suspension 98% w/w (Vanilla Silq High Density) PO ONE; +HYDR-3812 PO; -HYDR-83 PO
--- NOTE | 2019-12-16 12:50 | Diagnostic Imaging Report ---
INDICATION: Severe reflux. The patient ingested effervescent crystals as well as thin and thick barium and imaging of the esophagus, stomach and proximal small bowel was performed. A total of 1 minute and 4 seconds of fluoroscopic time was utilized. The esophagus has a smooth contour. No mass or stricture is identified. No hiatal hernia or gastroesophageal reflux was demonstrated. The stomach has normal configuration. Duodenal bulb is without deformity. There is prompt emptying of contrast from the stomach into the small bowel. The visualized proximal small bowel loops are unremarkable. IMPRESSION: Unremarkable upper gastrointestinal exam. Dictated by: Dictated on workstation # [id number]
== END ==
LOC: RAD 10:32
PROVIDERS: ATTEND Surgery
DX: K21.9 Gastro-esophageal reflux disease without esophagitis (principal)
CPT/HCPCS: 74246

== ENCOUNTER 2020-10-04 05:41 | Outpatient (CLI) | payer MEDICAID ==
[~2020-10-04] VITALS: Ht 170 cm; Wt 106.0 kg
[~2020-10-04 05:41] MED LIST changes: +ACHD5005 PO; -BARIUM for suspension 96% w/w (Vanilla Silq Medium Density) PO ONE; -BARIUM for suspension 98% w/w (Vanilla Silq High Density) PO ONE; -DOCU-238 PO; +DOCU-241 PO; -HYDR-3812 PO; -PANT40TA3 PO; +PANT40TA52 PO
== END 2020-10-04 13:24 | disposition home or self-care (01) ==
LOC: PREOP 05:41
PROVIDERS: ATTEND Surgery
DX: Z01.818 Encounter for other preprocedural examination (principal)

== ENCOUNTER → 2020-10-19 | Outpatient (CLI) | payer MEDICAID ==
[~2020-10-19] MED LIST changes: +CATHETER FLUSH 10 ML SYR IV PRN; +DIATRIZOATE MEGLUM/SODIUM 37% 120 ML (GASTROGRAFIN) PO ONE; -DOCU-241 PO; +DOCU-26 PO; +HOLD METFORMIN - RECEIVED CONTRAST 20 ML VIAL IV SCH; +IOHEXOL 350 MG/ML 100 ML (OMNIPAQUE 350) VIAL IV ONE; +NS 100 ML (IVPB) BAG IV ONE
--- NOTE | 2020-10-19 17:47 | Diagnostic Imaging Report ---
EXAMINATION: CT abdomen and pelvis with intravenous contrast. TECHNIQUE: Multiple contiguous axial images were obtained through the abdomen and pelvis after the uneventful administration of intravenous contrast. All CT scans use one or more of the following dose optimizing techniques: automated exposure control, MA and/or KvP adjustment based on patient size and exam type or iterative reconstruction. HISTORY: Abdominal pain. Evaluate for mass. COMPARISON: 10/13/2019. FINDINGS: The heart is unremarkable. The included lung bases are clear. A nodule in the right adrenal gland is visualized measuring 1.7 cm. This demonstrated fat density on the prior noncontrast sequences from 2019 and is consistent with a benign adrenal adenoma. The left adrenal gland is unremarkable. The liver is prominent, similar to the prior exam. Findings may represent normal variant of a Caryn lobe. The spleen, pancreas and kidneys have a normal appearance. The gallbladder is surgically absent. There is no pathologically enlarged mesenteric or retroperitoneal adenopathy. Stable small nodule seen within the mesentery of the right upper quadrant measuring 1.0 cm, unchanged compared to the prior exam. The bowel loops are nondilated. The appendix is visualized in the right lower quadrant and has a normal appearance. There is no free fluid or free air. No acute osseous abnormalities. Ureters and bladder are grossly normal. Prior hysterectomy changes are noted. There is no free air, loculated collection, or adenopathy in the pelvis. IMPRESSION: 1. No acute abnormalities are seen in the abdomen and pelvis. No bowel obstruction, free fluid or free air. 2. Stable nonspecific nodularity within the mesentery in the right upper quadrant measuring 1.0 cm. Findings may represent a small splenule or mildly prominent lymph node. Recommend follow-up as indicated. 3. Stable benign adrenal adenoma in the left adrenal gland. Dictated by: Dictated on workstation # [id number]
== END ==
LOC: RAD 14:45
PROVIDERS: ATTEND Surgery
DX: D35.02 Benign neoplasm of left adrenal gland (principal); R19.07 Generalized intra-abdominal and pelvic swelling, mass and lump
CPT/HCPCS: 74177